=== PATIENT | female | born 1930 | race Caucasian/White ===

== ENCOUNTER → 2019-05-18 | Outpatient (REF) | payer MEDICARE, BC ==
[2019-05-18 11:46] LABS: BASO % 0.4 % (0.0-1.0); EOS # 0.2 10^3/uL (0.0-0.5); EOS % 3.4 % (0.0-3.0); HEMATOCRIT 40.9 % (36.0-47.0); HEMOGLOBIN 13.5 g/dl (12.0-15.5); MEAN CORPUSCULAR HEMOGLOBIN 32.4 pg (27.0-33.0); MEAN CORPUSCULAR VOLUME 98.1 fl (80.0-96.0); MONO # 0.9 10^3/uL (0.0-0.8); MONO % 12.3 % (0.0-5.0); NEUTROPHILS # 4.9 10^3/uL (1.5-8.5); NEUTROPHILS % 69.6 % (36.0-66.0); PLATELET COUNT, AUTOMATED 224 10^3/uL (150-450); RED BLOOD COUNT 4.17 10^6/uL (4.00-5.40); WHITE BLOOD COUNT 7.1 10^3/uL (4.0-10.0)
[2019-05-18 12:18] LABS: ALBUMIN 3.4 GM/DL (3.2-5.2); BILIRUBIN,TOTAL 0.8 MG/DL (0.2-1.0); CALCIUM LEVEL 9.9 MG/DL (8.8-10.2); CHOLESTEROL RISK RATIO 2.151 (<5); CREATININE FOR GFR 0.99 MG/DL (0.55-1.30); GLOMERULAR FILTRATION RATE 56.5 (>32); POTASSIUM SERUM 4.3 MEQ/L (3.5-5.1); TOTAL PROTEIN 6.4 GM/DL (6.4-8.2)
[2019-05-18 12:21] LABS: TOTAL 25(OH) VITAMIN D 31.5 NG/ML (30.0-100.0)
[2019-05-18 12:22] LABS: PTH INTACT 116.5 PG/ML (18.5-88.0)
== END ==
LOC: M SFHCPLAZ 09:06
PROVIDERS: ATTEND Physician Assistant Medical
DX: I10 Essential (primary) hypertension (principal); E78.00 Pure hypercholesterolemia, unspecified; E55.9 Vitamin D deficiency, unspecified

== ENCOUNTER → 2019-06-20 | Outpatient (REF) | payer MEDICARE, BC | LOC: M SFHCPLAZ 17:19 | PROVIDERS: ATTEND Physician Assistant Medical | DX: L82.1 Other seborrheic keratosis (principal) | CPT/HCPCS: 11106; 88305; 90682; G0008; G0463 ==

== ENCOUNTER → 2019-10-24 | Outpatient (REF) | payer MEDICARE, BC ==
[2019-10-24 17:43] LABS: BASO % 0.5 % (0.0-1.0); EOS % 4.2 % (0.0-3.0); HEMATOCRIT 43.8 % (36.0-47.0); HEMOGLOBIN 14.5 g/dl (12.0-15.5); LYMPH # 1.2 10^3/uL (1.5-5.0); LYMPH % 19.7 % (24.0-44.0); MEAN CORPUSCULAR HEMOGLOBIN 31.7 pg (27.0-33.0); MEAN CORPUSCULAR HGB CONC 33.1 g/dl (32.0-36.5); MEAN CORPUSCULAR VOLUME 95.6 fl (80.0-96.0); MONO # 0.9 10^3/uL (0.0-0.8); MONO % 14.7 % (0.0-5.0); NEUTROPHILS # 3.8 10^3/uL (1.5-8.5); NEUTROPHILS % 60.7 % (36.0-66.0); PLATELET COUNT, AUTOMATED 256 10^3/uL (150-450); RED BLOOD COUNT 4.58 10^6/uL (4.00-5.40); WHITE BLOOD COUNT 6.2 10^3/uL (4.0-10.0)
[2019-10-24 17:44] LABS: EOS # 0.3 10^3/uL (0.0-0.5)
[2019-10-24 17:50] LABS: BILIRUBIN,TOTAL 0.7 MG/DL (0.2-1.0); CALCIUM LEVEL 10.1 MG/DL (8.8-10.2); CREATININE FOR GFR 0.95 MG/DL (0.55-1.30); GLOMERULAR FILTRATION RATE 59.2 (>32); POTASSIUM SERUM 4.1 MEQ/L (3.5-5.1); TOTAL PROTEIN 7.5 GM/DL (6.4-8.2)
[2019-10-24 18:01] LABS: PTH INTACT 105.6 PG/ML (18.5-88.0); TOTAL 25(OH) VITAMIN D 35.7 NG/ML (30.0-100.0)
[2019-10-24 18:14] LABS: HEMOGLOBIN A1c 6.1 %
== END ==
LOC: M SFHCPLAZ 13:40
PROVIDERS: ATTEND Physician Assistant Medical
DX: E78.00 Pure hypercholesterolemia, unspecified (principal); I10 Essential (primary) hypertension; E55.9 Vitamin D deficiency, unspecified; R73.01 Impaired fasting glucose
CPT/HCPCS: 36415; 80053; 82306; 82550; 83036; 83970; 85025; G0463

== ENCOUNTER → 2019-11-17 | Outpatient (REF) | payer MEDICARE, BC ==
[2019-11-17 17:29] LABS: ALBUMIN 3.5 GM/DL (3.2-5.2); BILIRUBIN,TOTAL 0.6 MG/DL (0.2-1.0); CALCIUM LEVEL 10.1 MG/DL (8.8-10.2); CREATININE FOR GFR 1.05 MG/DL (0.55-1.30); GLOMERULAR FILTRATION RATE 52.8 (>32); POTASSIUM SERUM 4.5 MEQ/L (3.5-5.1); TOTAL PROTEIN 6.6 GM/DL (6.4-8.2)
== END ==
LOC: M SFHCPLAZ 13:06
PROVIDERS: ATTEND Physician Assistant Medical
DX: E87.1 Hypo-osmolality and hyponatremia (principal)

== ENCOUNTER 2020-01-18 19:17 | Observation (INO) | payer MEDICARE, BC ==
[~2020-01-18] VITALS: Ht 154.9 cm; Wt 55.0 kg
[2020-01-18] MEDS ORDERED: AMLO5TAB6 PO (19:39)
[2020-01-18] MEDS ORDERED: CARV12.5 PO (19:39)
[2020-01-18] MEDS ORDERED: ASPI81TA26 PO (19:39)
[2020-01-18] MEDS ORDERED: SYNT50TA PO (19:39)
[2020-01-18] MEDS ORDERED: CALTCHW4 PO (19:39)
[2020-01-18] MEDS ORDERED: ICAPCAP3 PO (19:39)
[2020-01-18] MEDS ORDERED: ROSU20TA5 PO (19:39)
--- NOTE | 2020-01-18 19:42 | REPVR ---
PROCEDURE INFORMATION: Exam: CT Head Without Contrast Exam date and time: 01/18/2020 7:31 PM Age: 89 years old Clinical indication: Speech disturbance; Patient HX: Trouble forming words and trouble holding and using utensils; Additional info: Neuro deficits TECHNIQUE: Imaging protocol: Computed tomography of the head without contrast. Radiation optimization: All CT scans at this facility use at least one of these dose optimization techniques: automated exposure control; mA and/or kV adjustment per patient size (includes targeted exams where dose is matched to clinical indication); or iterative reconstruction. Other technique: STROKE PROTOCOL was implemented. COMPARISON: No relevant prior studies available. FINDINGS: Brain: There is nzer-sz-[id number] parenchymal volume loss. White matter changes are demonstrated in the subcortical, centrum semiovale and periventricular white matter consistent with age related small vessel white matter angiopathic gliosis. Ventricles: The degree of ventricular dilatation is normal for age and/or degree of atrophy present. Bones/joints: Unremarkable. No acute fracture. Sinuses: Visualized sinuses are unremarkable. No fluid levels. Mastoid air cells: Visualized mastoid air cells are well aerated. Soft tissues: Unremarkable. IMPRESSION: 1. There is mfsp-ks-[id number] parenchymal volume loss. White matter changes are demonstrated in the subcortical, centrum semiovale and periventricular white matter consistent with age related small vessel white matter angiopathic gliosis. 2. The degree of ventricular dilatation is normal for age and/or degree of atrophy present. ASSESSMENT: ASPECTS ([place] Stroke Program Early CT Score) is 10. Electronically signed by: Adam Collins On 01/18/2020 19:41:37 PM
[2020-01-18] MEDS ORDERED: CARVedilol 12.5 MG TAB PO ONE (20:30)
[2020-01-18 20:51] LABS: APPEARANCE, URINE TURBID (CLEAR); BACTERIA, URINE AUTO NEGATIVE (NEGATIVE); BILIRUBIN, URINE AUTO NEGATIVE (NEGATIVE); BLOOD, URINE BLOOD NEGATIVE (NEGATIVE); COLOR, URINE AMBER (YELLOW); GLUCOSE, URINE (UA) AUTO NEGATIVE (NEGATIVE); KETONE, URINE AUTO NEGATIVE (NEGATIVE); LEUKOCYTE ESTERASE, URINE AUTO 3+ (NEGATIVE); NITRITE, URINE AUTO POSITIVE (NEGATIVE); PROTEIN, URINE AUTO 1+ mg/dL (NEGATIVE); RBC, URINE AUTO 108 /HPF (0-3); SQUAMOUS EPITHELIAL CELL UR AU 0 /HPF (0-6); TRANSITIONAL EPITHELIAL AUTO 1 /HPF; UROBILINOGEN, URINE AUTO 0.2 mg/dL (0.0-2.0); WBC, URINE AUTO TNTC /HPF (0-3)
[2020-01-18 20:53] LABS: BASO % 0.3 % (0.0-1.0); EOS # 0.3 10^3/uL (0.0-0.5); EOS % 3.6 % (0.0-3.0); HEMATOCRIT 44.1 % (36.0-47.0); HEMOGLOBIN 14.5 g/dl (12.0-15.5); LYMPH # 1.1 10^3/uL (1.5-5.0); LYMPH % 14.6 % (24.0-44.0); MEAN CORPUSCULAR HEMOGLOBIN 31.8 pg (27.0-33.0); MEAN CORPUSCULAR HGB CONC 32.9 g/dl (32.0-36.5); MEAN CORPUSCULAR VOLUME 96.7 fl (80.0-96.0); MONO # 0.8 10^3/uL (0.0-0.8); NEUTROPHILS # 5.1 10^3/uL (1.5-8.5); NEUTROPHILS % 70.2 % (36.0-66.0); PLATELET COUNT, AUTOMATED 221 10^3/uL (150-450); RED BLOOD COUNT 4.56 10^6/uL (4.00-5.40); WHITE BLOOD COUNT 7.3 10^3/uL (4.0-10.0)
[2020-01-18] MEDS ORDERED: LOSA100T8 PO (21:04)
[2020-01-18 21:07] LABS: PROTHROMBIN TIME 12.9 SECONDS (11.8-14.0)
[2020-01-18 21:08] LABS: PARTIAL THROMBOPLASTIN TIME 36.8 SECONDS (25.0-38.4)
[2020-01-18 21:18] LABS: BLOOD UREA NITROGEN 15 MG/DL (7-18); CARBON DIOXIDE LEVEL 28 MEQ/L (21-32); CHLORIDE LEVEL 103 MEQ/L (98-107); CK-MB VALUE MASS 1.1 NG/ML (<3.6); CPK CREATINE PHOSPHOKINASE 54 U/L (26-192); CREATININE FOR GFR 1.06 MG/DL (0.55-1.30); GLOMERULAR FILTRATION RATE 52.2 (>32); GLUCOSE, FASTING 126 MG/DL (70-100); MB/CK RELATIVE INDEX 2.04 (< OR =4); POTASSIUM SERUM 4.4 MEQ/L (3.5-5.1); SODIUM LEVEL 137 MEQ/L (136-145); TROPONIN I < 0.02 NG/ML (< 0.10)
--- NOTE | 2020-01-18 21:18 | ECGEPIP ---
[facility] - ED Test Date: 2020-01-18 Pat Name: ELISABETH ESTES Department: Room: - Gender: Female Information Management Specialist: RITA : [id number] Requested By: Phu Fortune Order Number: [id number] Reading MD: Phu Enamorado Measurements Intervals [place] Rate: 72 P: 28 WV: 197 QRS: -52 QRSD: 98 T: 25 QT: 364 QTc: 400 Interpretive Statements SINUS RHYTHM PATTERN CONSISTENT WITH PULMONARY DISEASE SEPTAL MYOCARDIAL INFARCTION, OF INDETERMINATE AGE NO PRIORS FOR COMPARISON Electronically Signed on 01-18-2020 21:18:00 EDT by Phu Enamorado
[2020-01-18] MEDS ORDERED: MAALOX 30 ML SUSP *UDC PO PRN (21:45)
[2020-01-18] MEDS ORDERED: ACETAMINOPHEN TAB 650MG DOSE (2X325MG) PO PRN (21:45)
[2020-01-18] MEDS ORDERED: MOM 30ML SUSPENSION UDC PO PRN (21:45)
[2020-01-18] MEDS ORDERED: cefTRIAXone SOD 1 GM in D5W MINI-BAG PLUS 50 ML IV SCH (22:00)
--- NOTE | 2020-01-18 22:13 | HPEPDOC ---
General Date of Admission Date of Service: January 18, 2020 Chief Complaint The patient is a 89-year-old female admitted with a reason for visit of Chan De Los Santos. Source: Patient, RN/MD, Other (family) Exam Limitations: No limitations Timing/Duration: Other (today) Severity: Other (, not applicable) Associated Symptoms: Other (expressive aphasia) History of Present Illness This is a 89 years old white female with past medical history of hypothyroidism, hypertension, macular degeneration is status post PR and cardiac arrest 27 years ago, history of high abnormal M immunoglobulins and hyperlipidemia, had tripped on her robe and fell today, but then at about 5:30, while eating her dinner. Her son noticed that she was having difficulty expressing her words and she was also having trouble with her utensils, hence was brought to the emergency room. Patient is not a good historian. According to patient, she tripped on her robe and she doesn't recall any dysarthria or trouble with her fine motor movements. History was obtained from the M.D. and ED records. Home Medications Scheduled Amlodipine Besylate (Amlodipine Besylate) 5 Mg Tablet, 5 MG PO DAILY, (Reported) TAKES AT 0900 Antiox.mv No.10/Omeg3s/Lut/Rafael (I-Caps with Lutein-[place] 3 Sfg) 1 Each Capsule, 1 CAP PO BID, (Reported) TAKES AT NOON AND AFTER SUPPER Aspirin (Aspirin EC) 81 Mg Tablet.dr, 81 MG PO DAILY, (Reported) TAKES AROUND 1400 Calcium Carbonate/Vitamin D3 (Caltrate 600 + D Soft Chew Tab) 1 Each Tab.chew, 1 CHW PO DAILY, (Reported) TAKES AROUND 1500 Carvedilol (Carvedilol) 12.5 Mg Tablet, 12.5 MG PO BID, (Reported) TAKES 0800 & 2100 Levothyroxine Sodium (Synthroid) 50 Mcg Tablet, 50 MCG PO QAM, (Reported) Losartan/Hydrochlorothiazide (Losartan-Hctz 100-12.5 mg Tab) 1 Each Tablet, 1 TAB PO DAILY, (Reported) TAKES AT 0800 Rosuvastatin Calcium (Rosuvastatin Calcium) 20 Mg Tablet, 20 MG PO QHS, (Reported) Allergies Coded Allergies: No Known Allergies (Unverified , 01/18/20) Past Medical History Medical History Hypothyroidism, hypertension, macular degeneration, status post PR, cardiac arrest, 27 years ago, history of abnormal IgM monoclonal antibiotics, and hyperlipidemia Surgical History Status post bladder removal Family History Family history reviewed. No family history of ordered. Social History * Smoker: Denies Alcohol: Denies Drugs: denies A-FIB/CHADSVASC A-FIB History Current/History of A-Fib/PAF?: No Review of Systems Constitutional: Denies: Chills, Fever, Malaise, Night Sweats, Weakness, Fatigue, Weight Loss, Lethargy, Other Eyes: Denies: Pain, Vision change, Conjunctivae inflammation, Eyelid inflammation, Redness, Other ENT: Denies: Head Aches, Ear Pain, Dysphagia, Sinus Congestion, Post Nasal Drip, Sore Throat, Epistaxis, Other Symptoms Skin: Denies: Rash, Lesions, Jaundice, Bruising, Itching, Dry, Breakdown, Nail Changes, Other Pulmonary: Denies: Dyspnea, Cough, Pleuritic Chest Pain, Other Symptoms Cardiovascular: Denies: Chest Pain, Palpitations, Orthopnea, Paroxysmal Noc. Dyspnea, Edema, Lt Headedness, Other Symptoms Gastrointestinal: Denies: Nausea, Vomiting, Abdominal Pain, Diarrhea, Constipation, Melena, Hematochezia, Other Symptoms Genitourinary: Denies: Dysuria, Frequency, Incontinence, Hematuria, Retention, Other Symptoms Hematologic: Denies: Bruising, Bleeding Excessively, Petecchia, Purpura, Enlarged Lymph Nodes, Other Hematologic Endocrine: Denies: Polydipsia, Polyphagia, Polyuria, Heat Intolerance, Cold Intolerance, Other Endocrine Sx Musculoskeletal: Denies: Neck Pain, Back Pain, Shoulder Pain, Arm Pain, Hand Pain, Leg Pain, Foot Pain, Joint Pain, Muscle Pain, Spasms, Other Symptoms Neurological: Reports: Other Symptoms (, difficulty with fine motor movements and dysarthria. As per family) Psych: Denies: Mood Normal, Anxiety, Depression, Memory Issues, Thoughts of Self Harm, Anger, Thoughts of Harming Other, Other Psych Physical Examination General Exam: Positive: Alert, Cooperative, Other (, oriented 2) Eye Exam: Positive: PERRLA, Conjunctiva & lids normal ENT Exam: Positive: Atraumatic, Mucous membr. moist/pink Neck Exam: Positive: Supple Chest Exam: Positive: Clear to auscultation, Normal air movement Heart Exam: Positive: Rate Normal, Normal S1, Normal S2 Abdomen Exam: Positive: Normal bowel sounds, Soft Extremity Exam: Positive: Normal pulses Skin Exam: Positive: Nl turgor and temperature Neuro Exam: Positive: Strength at 5/5 X4 ext, Sensation Intact, Cranial Nerves 3-12 NL Psych Exam: Positive: Mood NL Vital Signs Vital Signs Date Time Temp Pulse Resp B/P (MAP) Pulse Ox O2 Delivery O2 Flow Rate FiO2 01/18/20 21:15 98.2 68 18 174/84 (114) 100 01/18/20 19:17 Room Air Laboratory Data Labs 24H Laboratory Tests 2 01/18/20 20:09: Urine Color CHRISTINE, Urine Appearance TURBIDH, Urine pH 7.0, Urine Specific Gravit y 1.010, Urine Protein 1+H, Urine Glucose (Auto)(UA) NEGATIVE, Urine Ketones (Auto) NEGATIVE, Urine Blood NEGATIVE, Urine Nitrite POSITIVE, Urine Bilirubin NEGATIVE, Urine Urobilinogen 0.2, Urine Leukocyte Esterase (Auto) 3+H, Urine WBC (Auto) TNTCH, Urine RBC (Auto) 108H, Urine Hyaline Casts (Auto) 0, Urine Bacteria (Auto) NEGATIVE, Urine Squamous Epithelial Cells 0, Urine Transitional Epithelial Cells 1, Urine Sperm (Auto) 01/18/20 20:36: Immature Granulocyte % (Auto) 0.3, Neutrophils (%) (Auto) 70.2H, Lymphocytes (%) (Auto) 14.6L, Monocytes (%) (Auto) 11.0H, Eosinophils (%) (Auto) 3.6H, Basophils (%) (Auto) 0.3, Neutrophils # (Auto) 5.1, Lymphocytes # (Auto) 1.1L, Monocytes # (Auto) 0.8, Eosinophils # (Auto) 0.3, Basophils # (Auto) 0.0, Nucleated Red Blood Cells % (auto) 0.0, Prothrombin Time 12.9, Prothromb Time International Ratio 1.00, Activated Partial Thromboplast Time 36.8, Anion Gap 6L, Glomerular Filtration Rate 52.2, Calcium Level 10.0, Total Creatine Kinase 54, Creatine Kinase MB 1.1, Creatine Kinase MB Relative Index 2.04, Troponin I < 0.02 CBC/BMP Laboratory Tests 01/18/20 20:36 Problems (1) TIA (transient ischemic attack) Status: Acute Problem Text: Admit patient to PCU under observation Patient is a CT of the head essentially showed mild to moderate parenchymal volume loss and age-related changes but no hemorrhage or stroke CBC, CMP and troponins are essentially within normal range Patient is ready on baby aspirin and Crestor and will continue the same Neuro check every 4 hours for 24 hours Telemetry monitoring MRI of the brain without contrast Carotid Dopplers bilaterally Echocardiogram PT/OT/ST evaluation Diet 2 g sodium Activity ambulate with assist and till seen by physical therapy DVT prophylaxis with heparin (2) UTI (urinary tract infection) Status: Acute Problem Text: Patient urine shows 3+ leukocyte the stress with bacteria too numerous to count Rocephin 1 g IV every 24 hours has been ordered , Urine cultures Encourage by mouth increase intake of liquids (3) Essential hypertension Status: Chronic Problem Text: History of hypertension, on Coreg, amlodipine, lovastatin and hydrochlorothiazide Blood pressure at the present time is slightly elevated, but considering the new diagnosis of TIA, will not aggressively treat . I will continue all her home antihypertensive meds and monitor blood pressure closely and slowly increase the dosage of her meds if necessary to normalize her blood pressure (4) Hypothyroidism Status: Chronic Problem Text: Continue home meds Plan / VTE VTE Prophylaxis Ordered?: Yes WILLIAN PITTMAN MD January 18, 2020 22:12
[2020-01-18 23:00] VITALS: BP 220/110
--- NOTE | 2020-01-18 23:10 | REPVR ---
PROCEDURE INFORMATION: Exam: US Duplex Bilateral Extracranial Arteries Exam date and time: 01/18/2020 10:51 PM Age: 89 years old Clinical indication: Other: TIA TECHNIQUE: Imaging protocol: Real-time Duplex ultrasound scan of the bilateral carotid and vertebral arteries combining hauser scale, color Doppler and spectral waveform analysis. Bilateral exam. COMPARISON: CT Head without contrast 01/18/2020 7:22 PM FINDINGS: Right common carotid artery: Unremarkable. No occlusion or stenosis. Waveforms are normal. Right internal carotid artery: Moderate calcific and noncalcific atherosclerotic narrowing in the right bulb. No significant elevation in peak systolic velocity. Spectral broadening demonstrated in the waveform. Right ICA/CCA ratio: Within normal limits. Right external carotid artery: Atherosclerotic narrowing at the origin. Right vertebral artery: Unremarkable. Antegrade flow. Left common carotid artery: Intimal thickening. Otherwise unremarkable. No occlusion or stenosis. Waveforms are normal. Left internal carotid artery: Mild atherosclerotic narrowing. No occlusion or high-grade stenosis. Waveforms are normal. Left ICA/CCA ratio: Within normal limits. Left external carotid artery: No stenosis in the origin. Left vertebral artery: Unremarkable. Antegrade flow. IMPRESSION: 1. Moderate atherosclerotic narrowing using anatomic criteria in the proximal right internal carotid artery without significant elevation in velocities. 2. Mild atherosclerotic narrowing in the proximal left internal carotid artery without significant stenosis. 3. Atherosclerotic narrowing at the origin of the right external carotid artery. 4. Normal flow in both vertebral arteries. REFERENCES: SRU CRITERIA. The degree of internal carotid artery stenosis is based on criteria defined by the Society of Radiologists in Ultrasound (SRU). Normal is no stenosis. Mild is less than 50% stenosis. Moderate is 50-69% stenosis. Severe is greater than 69% stenosis to near occlusion. Near occlusion is a markedly narrowed lumen. Total occlusion is no detectable patent lumen. Electronically signed by: Adam Collins On 01/18/2020 23:09:58 PM
[2020-01-18] MEDS ORDERED: hydrALAZINE 20MG/ML 1ML VIAL (J0360 PER 20MG) IV ONE (23:15)
[2020-01-18] MEDS: ROSUVASTATIN 10 MG TAB (CRESTOR) PO SCH (23:23)
[2020-01-19] VITALS (8 sets, daily range): BP systolic 129–190; BP diastolic 70–96
[2020-01-19 04:09] LABS: HEMATOCRIT 42.4 % (36.0-47.0); HEMOGLOBIN 14.3 g/dl (12.0-15.5); MEAN CORPUSCULAR HEMOGLOBIN 32.2 pg (27.0-33.0); MEAN CORPUSCULAR HGB CONC 33.7 g/dl (32.0-36.5); MEAN CORPUSCULAR VOLUME 95.5 fl (80.0-96.0); PLATELET COUNT, AUTOMATED 213 10^3/uL (150-450); RED BLOOD COUNT 4.44 10^6/uL (4.00-5.40); WHITE BLOOD COUNT 9.7 10^3/uL (4.0-10.0)
[2020-01-19 04:43] LABS: ALBUMIN 3.4 GM/DL (3.2-5.2); ALT/SGPT 24 U/L (12-78); BILIRUBIN,TOTAL 0.6 MG/DL (0.2-1.0); BLOOD UREA NITROGEN 15 MG/DL (7-18); CARBON DIOXIDE LEVEL 26 MEQ/L (21-32); CHLORIDE LEVEL 104 MEQ/L (98-107); CREATININE FOR GFR 0.92 MG/DL (0.55-1.30); GLOMERULAR FILTRATION RATE > 60.0 (>32); GLUCOSE, FASTING 124 MG/DL (70-100); MAGNESIUM LEVEL 2.3 MG/DL (1.8-2.4); POTASSIUM SERUM 3.9 MEQ/L (3.5-5.1); SODIUM LEVEL 135 MEQ/L (136-145); TOTAL PROTEIN 6.6 GM/DL (6.4-8.2)
[2020-01-19] MEDS: LEVOTHYROXINE 50MCG TABLET (0.05MG) PO SCH (05:07)
[2020-01-19] MEDS: HEPARIN SOD (PORCINE) 5000UNITS/ML VIAL (J1644 PER 1000UNITS) SC SCH ×2 (08:51→20:50)
[2020-01-19] MEDS: LOSARTAN 50MG TABLET PO SCH (08:51)
[2020-01-19] MEDS: amLODIPine 5 MG TAB PO SCH (08:52)
[2020-01-19] MEDS: CARVedilol 12.5 MG TAB PO SCH ×2 (08:52→20:49)
[2020-01-19] MEDS: DOCUSATE SODIUM 100 MG CAP PO SCH ×2 (08:52→20:48)
--- NOTE | 2020-01-19 08:53 | REP ---
PORTABLE CHEST X-RAY: Single view. HISTORY: TIA. No comparison study. FINDINGS: The lungs are symmetrically aerated and clear. Heart is enlarged. The aorta is tortuous and calcific. Pulmonary vasculature is not increased. No focal infiltrate is appreciated. IMPRESSION: Cardiomegaly. Otherwise no acute disease. Electronically Signed by Matteo Conn MD 01/19/2020 09:13 A
[2020-01-19] MEDS ORDERED: hydroCHLOROthiazide 12.5 MG CAPSULE PO SCH (09:00)
--- NOTE | 2020-01-19 12:18 | IPNPDOC ---
Text Note Date of Service The patient was seen on 01/19/20. NOTE Subjective: -Doing much better this morning -Was walking in the hallway with PT with a walker -No complaints, told me that she misses her who in 09/2018 Objective: General: NAD Eye: PERRLA, Conjunctiva & lids normal, EOMI ENT: Atraumatic, Mucous membr. moist/pink Neck Exam: Supple Chest: Clear to auscultation, Normal air movement Heart: Rate Normal, Normal S1, Normal S2 Abdomen: Normal bowel sounds, Soft, NTND Extremity: WWP, no edema Skin: Nl turgor and temperature Neuro: Strength at 5/5 X4 ext, Sensation Intact, Cranial Nerves 3-12 NL Psych: AOx2 to self and hospital Labs: Reviewed Plan (1) TIA (transient ischemic attack): may have also been metabolic encephalopathy 2/2 acute infection with ongoing UTI Status: Acute - CT of the head essentially showed mild to moderate parenchymal volume loss and age-related changes but no hemorrhage or stroke -CBC, CMP and troponins wnl -continue home ASA/statin -continue Q4H neurocheck for 24h, thus far stable -Telemetry -f/u MRI of the brain without contrast -Carotid Dopplers with moderate disease without significant stenoses -Echocardiogram pending -PT/OT/ST evaluation ongoing -DVT prophylaxis with heparin (2) UTI Status: Acute Problem Text: 3+ leukocyte the stress with bacteria too numerous to count, having presented with AMS/neuro changes -continue 1 g IV every 24 hours -f/u UCx -continue to encourage PO (3) Essential hypertension Status: Chronic Problem Text: History of hypertension -continue home Coreg, amlodipine, lovastatin and hydrochlorothiazide (4) Hypothyroidism Status: Chronic -Continue home meds VS,Fishbone, I+O VS, Fishbone, I+O Laboratory Tests 01/18/20 20:36 01/19/20 03:49 Vital Signs Date Time Temp Pulse Resp B/P (MAP) Pulse Ox O2 Delivery O2 Flow Rate FiO2 01/19/20 08:52 76 181/78 01/19/20 08:00 98.1 16 96 Room Air I&O- Last 24 Hours up to 6 AM 01/19/20 05:59 Intake Total 50 ml Output Total 0 ml Balance 50 ml UMM BURT MD January 19, 2020 12:18
[2020-01-19] MEDS ORDERED: SLF 3 ML SYR IV PRN (13:15)
[2020-01-19] MEDS ORDERED: ASPIRIN 81 MG ENTERIC TAB PO SCH (14:00)
[2020-01-19] MEDS: SLF 3 ML SYR IV SCH ×2 (14:00→20:50)
--- NOTE | 2020-01-19 15:17 | ECHO ---
DATE OF STUDY: 01/19/2020 REFERRING PHYSICIAN: Dr. Malcolm Stephenson INDICATION: Transient cerebral ischemia, unspecified. HEIGHT: 155 cm WEIGHT: 82 kg 2-D MEASUREMENTS: Aortic annulus: 1.8 cm Aortic root: 3.1 cm Left atrium: 2.4 cm Left ventricular diastole: 4.1 cm Ventricular septum: 1.10 cm Posterior wall: 1.11 cm Inferior vena cava: 1.1 cm (more than 50% respiratory variation) DOPPLER MEASUREMENTS: No aortic regurgitation. No aortic stenosis. Aortic valve velocity: 154 cm/sec LVOT velocity: 93.2 cm/sec LVOT VTI: 21.8 cm Trace mitral regurgitation. No mitral stenosis. Mitral E velocity: 73.1 cm/sec Mitral A velocity: 113 cm/sec Mitral deceleration time: 299 ms Trace tricuspid regurgitation. Estimated right ventricular systolic pressure 25-30 mmHg assuming a right atrial pressure of 5-10 mmHg. Very mild pulmonic regurgitation. Pulmonary artery systolic pressure: 24 mmHg MITRAL ANNULAR TISSUE DOPPLER E prime septal: 3.7 cm/sec E prime lateral: 3.9 cm/sec DESCRIPTION: The rhythm was sinus. Image quality was fair. No pericardial effusion. This was a 2-D, M-mode, color flow Doppler and pulsed wave Doppler examination and included mitral annular tissue Doppler. It also included a saline bubble study. CONCLUSIONS: 1. Bubble study negative for detection of atrial septal defect (ASD) or patent foramen ovale with right to left shunting; however, visualization of the left atrium was suboptimal due to overgaining effects. 2. Presence of atherosclerosis in the aortic root in the vicinity of the sinotubular junction and beginning portion of the proximal ascending aorta. 3. Moderate aortic valve sclerosis of a 3-cusp aortic valve. No aortic stenosis or regurgitation. 4. Hyperdynamic LV systolic function. Left ventricular ejection fraction (LVEF) 75% by visual estimate. Grade I LV diastolic dysfunction (impaired relaxation of filling pattern). 5. Otherwise, normal appearing echocardiogram-Doppler findings.
[2020-01-19] MEDS: CEPHALEXIN 500 MG CAP PO SCH ×2 (17:24→20:49)
[2020-01-19] MEDS: ROSUVASTATIN 10 MG TAB (CRESTOR) PO SCH (20:49)
[2020-01-19] MEDS ORDERED: NITROFURANTOIN (MACROBID) 100 MG CAP PO SCH (21:00)
[2020-01-20] MEDS: LEVOTHYROXINE 50MCG TABLET (0.05MG) PO SCH (05:29)
[2020-01-20] MEDS: SLF 3 ML SYR IV SCH (05:30)
[2020-01-20 06:00] VITALS: BP 109/77
[2020-01-20] MEDS ORDERED: LOSA100T5 PO (08:09)
[2020-01-20] MEDS ORDERED: CEPH500C PO (08:09)
[2020-01-20] MEDS ORDERED: DOCU100C16 PO (08:09)
--- NOTE | 2020-01-20 08:25 | REP ---
MRI BRAIN WITHOUT CONTRAST: HISTORY: Transient ischemic attack. Comparison is made with the previous day's noncontrast CT study. TECHNIQUE: Axial and sagittal imaging planes are utilized for T1- and T2-weighted scans. Sequences include spin-echo, fast spin echo, FLAIR, and diffusion weighted sequences. MRI FINDINGS: No bony calvarial lesion is seen. Craniocervical junction and upper cervical cord are unremarkable. There is no MR evidence of significant paranasal sinus disease. No intraorbital abnormality. There is generalized volume loss. Mild small vessel changes are seen in the periventricular and subcortical white matter bilaterally. There is no evidence of intracranial hemorrhage. No extra-axial fluid collection is seen. Diffusion-weighted scans show no evidence of restricted diffusion to suggest acute ischemia. IMPRESSION: Volume loss and small vessel changes. No acute ischemia is seen. Otherwise negative. Electronically Signed by Matteo Conn MD 01/21/2020 07:39 P
[2020-01-20] MEDS: HEPARIN SOD (PORCINE) 5000UNITS/ML VIAL (J1644 PER 1000UNITS) SC SCH (09:00)
[2020-01-20] MEDS ORDERED: hydroCHLOROthiazide 25 MG TAB PO SCH (09:00)
[2020-01-20] MEDS: DOCUSATE SODIUM 100 MG CAP PO SCH (10:02)
[2020-01-20] MEDS: CEPHALEXIN 500 MG CAP PO SCH ×2 (10:03→12:51)
[2020-01-20] MEDS: amLODIPine 5 MG TAB PO SCH (10:03)
[2020-01-20] MEDS: LOSARTAN 50MG TABLET PO SCH (10:03)
[2020-01-20 10:04] VITALS: BP 120/76
[2020-01-20] MEDS: CARVedilol 12.5 MG TAB PO SCH (10:04)
--- NOTE | 2020-01-20 10:42 | DS.PDOC ---
Discharge Summary General Date of Admission January 18, 2020 at 19:18 Date of Discharge 01/20/2020 Attending Physician: UMM BURT MD Discharge Summary PROCEDURES PERFORMED DURING STAY: None ADMITTING DIAGNOSES: 1. TIA DISCHARGE DIAGNOSES: 1. UTI 2. Metabolic encephalopathy 2/2 infection 3. Hypothyroidism 4. Hypertension 5.Macular degeneration 6. CAD 7. Hyperlipidemia 8. Mechanical fall COMPLICATIONS/CHIEF COMPLAINT: Transient Ischemic Attack, Uti. HISTORY OF PRESENT ILLNESS: 89 year old W with a history of hypothyroidism, hypertension, macular degeneration, CAD, history of high abnormal M immunoglobulins and hyperlipidemia tripped on her robe and fell and a few hours later was noted to have difficulty expressing words and she was also having trouble with her utensils and was brought to the emergency room. HOSPITAL COURSE: On arrival she had severe hypertension and found to have a mariam UTI, was CT head not reveal any bleeding, masses or acute intracranial abnormalities and she was admitted for hypertensive urgency, UTI and stroke rule out. She had q4 neurochecks that showed a stable normal neurological examination over 24hours, ambulated with physical therapy with a walker, had a follow up MRI brain that revealed no acute infarct, bleeding or mass, while she was empirically started on ceftriaxone and later transitioned to keflex with a plan for a 7 day course. With regard to her hypertension, she required some IV antihypertensives and was resumed on her home regimen with uptitration of her HCTZ from 12.5 to 25 daily. She has now been cleared by PT and will be discharged home where she will complete the remaining 5d of her keflex. DISCHARGE MEDICATIONS: Please see below. ALLERGIES: Please see below. PHYSICAL EXAMINATION ON DISCHARGE: VITAL SIGNS: Please see below. General: NAD, pleasant, conversational, cooperative Eye: PERRLA, Conjunctiva & lids normal, EOMI ENT: Atraumatic, Mucous membr. moist/pink Neck Exam: Supple Chest: Clear to auscultation, Normal air movement Heart: Rate Normal, Normal S1, Normal S2 Abdomen: Normal bowel sounds, Soft, NTND Extremity: WWP, no edema Skin: Nl turgor and temperature Neuro: Strength at 5/5 X4 ext, normal tone, Cranial Nerves 2-12 WNL, no dysarthria, droops, or asymmetrical weakness Psych: AOx3 LABORATORY DATA: Please see below. IMAGING: noncontrast head CT: 1. There is twbs-[id number] parenchymal volume loss. White matter changes are demonstrated in the subcortical, centrum semiovale and periventricular white matter consistent with age related small vessel white matter angiopathic gliosis. 2. The degree of ventricular dilatation is normal for age and/or degree of atrophy present. CXR: Cardiomegaly. Otherwise no acute disease. Duplex carotid US: Right common carotid artery: Unremarkable. No occlusion or stenosis. Waveforms are normal. Right internal carotid artery: Moderate calcific and noncalcific atherosclerotic narrowing in the right bulb. No significant elevation in peak systolic velocity. Spectral broadening demonstrated in the waveform. Right ICA/CCA ratio: Within normal limits. Right external carotid artery: Atherosclerotic narrowing at the origin. Right vertebral artery: Unremarkable. Antegrade flow. Left common carotid artery: Intimal thickening. Otherwise unremarkable. No occlusion or stenosis. Waveforms are normal. Left internal carotid artery: Mild atherosclerotic narrowing. No occlusion or high-grade stenosis. Waveforms are normal. Left ICA/CCA ratio: Within normal limits. Left external carotid artery: No stenosis in the origin. Left vertebral artery: Unremarkable. Antegrade flow. IMPRESSION: 1. Moderate atherosclerotic narrowing using anatomic criteria in the proximal right internal carotid artery without significant elevation in velocities. 2. Mild atherosclerotic narrowing in the proximal left internal carotid artery without significant stenosis. 3. Atherosclerotic narrowing at the origin of the right external carotid artery. 4. Normal flow in both vertebral arteries. MRI brain without contrast: Volume loss and small vessel changes. No acute ischemia is seen. Otherwise negative. PROGNOSIS: Good ACTIVITY: As tolerated DIET: regular DISCHARGE PLAN: Home to complete 5 more days of keflex for UTI. PCP f/u within 1 week DISPOSITION: Home DISCHARGE INSTRUCTIONS: 1. Home to complete 5 more days of keflex for UTI. PCP f/u within 1 week ITEMS TO FOLLOWUP ON ON OUTPATIENT: 1. UTI 2. Metabolic encephalopathy 3. Hypertension DISCHARGE CONDITION: Stable TIME SPENT ON DISCHARGE: 44 minutes. Vital Signs/I&Os Vital Signs Date Time Temp Pulse Resp B/P (MAP) Pulse Ox O2 Delivery O2 Flow Rate FiO2 01/20/20 06:00 97.7 64 17 109/77 (88) 98 Room Air I&O- Last 24 Hours up to 6 AM 01/20/20 05:59 Intake Total 360 ml Output Total 400 ml Balance -40 ml Microbiology Microbiology 01/19/20 Urine Culture, Received Pending Discharge Medications Scheduled Amlodipine Besylate (Amlodipine Besylate) 5 Mg Tablet, 5 MG PO DAILY, (Reported) TAKES AT 0900 Antiox.mv No.10/Omeg3s/Lut/Rafael (I-Caps with Lutein-[place] 3 Sfg) 1 Each Capsule, 1 CAP PO BID, (Reported) TAKES AT NOON AND AFTER SUPPER Aspirin (Aspirin EC) 81 Mg Tablet.dr, 81 MG PO DAILY, (Reported) TAKES AROUND 1400 Calcium Carbonate/Vitamin D3 (Caltrate 600 + D Soft Chew Tab) 1 Each Tab.chew, 1 CHW PO DAILY, (Reported) TAKES AROUND 1500 Carvedilol (Carvedilol) 12.5 Mg Tablet, 12.5 MG PO BID, (Reported) TAKES 0800 & 2100 Cephalexin (Cephalexin) 500 Mg Capsule, 500 MG PO QID Docusate Sodium (Docusate Sodium) 100 Mg Capsule, 100 MG PO BID Levothyroxine Sodium (Synthroid) 50 Mcg Tablet, 50 MCG PO QAM, (Reported) Losartan/Hydrochlorothiazide (Losartan-Hctz 100-25 mg Tab) 1 Each Tablet, 1 TAB PO DAILY Rosuvastatin Calcium (Rosuvastatin Calcium) 20 Mg Tablet, 20 MG PO QHS, (Reported) Allergies Coded Allergies: No Known Allergies (Unverified , 01/18/20) UMM BURT MD January 20, 2020 08:06
== END 2020-01-20 13:05 | disposition home or self-care (01) ==
LOC: M ED 19:17 → M ED INP 19:18 → ENRESERV 22:23 → M PCU 22:52 → M MS5PR 01-19 21:29
PROVIDERS: ADMIT Internal Medicine; ATTEND Internal Medicine
DX: N39.0 Urinary tract infection, site not specified (principal); G93.41 Metabolic encephalopathy; E03.9 Hypothyroidism, unspecified; I16.0 Hypertensive urgency; I10 Essential (primary) hypertension; H35.30 Unspecified macular degeneration; E78.49 Other hyperlipidemia; Z79.899 Other long term (current) drug therapy; I25.2 Old myocardial infarction; Z91.81 History of falling; Z87.891 Personal history of nicotine dependence
CPT/HCPCS: 36415; 70450; 70551; 71045; 80048; 80053; 81001; 82550; 82553; 83735; 84484; 85025; 85027; 85610; 85730; 86850; 86900; 86901; 87086; 92523; 92610; 93005; 93041; 93306; 93880; 94760; 96365; 96375; 97161; 97165; 97530; 99285; G0378; J0360; J0696; J1644

== ENCOUNTER → 2020-05-14 | Outpatient (CLI) | payer MEDICARE, BC ==
[~2020-05-14] MED LIST: AMLO1TAB24 PO; ASPI81TA26 PO; CALTCHW4 PO; CARV12.5 PO; CEPH500C PO; DOCU100C16 PO; ICAPCAP3 PO; LOSA100T5 PO; LOSA100T8 PO; ROSU20TA5 PO; SYNT50TA PO
[2020-05-14 15:34] LABS: BASO # 0.1 10^3/uL (0.0-0.2); BASO % 0.8 % (0.0-1.0); EOS # 0.3 10^3/uL (0.0-0.5); EOS % 4.8 % (0.0-3.0); HEMATOCRIT 40.7 % (36.0-47.0); LYMPH # 1.5 10^3/uL (1.5-5.0); LYMPH % 24.2 % (24.0-44.0); MEAN CORPUSCULAR HEMOGLOBIN 32.7 pg (27.0-33.0); MEAN CORPUSCULAR HGB CONC 34.4 g/dl (32.0-36.5); MEAN CORPUSCULAR VOLUME 95.1 fl (80.0-96.0); MONO # 0.8 10^3/uL (0.0-0.8); MONO % 13.7 % (0.0-5.0); NEUTROPHILS # 3.4 10^3/uL (1.5-8.5); NEUTROPHILS % 56.2 % (36.0-66.0); PLATELET COUNT, AUTOMATED 250 10^3/uL (150-450); RED BLOOD COUNT 4.28 10^6/uL (4.00-5.40)
[2020-05-14 16:02] LABS: ALBUMIN 3.6 GM/DL (3.2-5.2); ALT/SGPT 30 U/L (12-78); BILIRUBIN,TOTAL 0.7 MG/DL (0.2-1.0); BLOOD UREA NITROGEN 21 MG/DL (7-18); CALCIUM LEVEL 10.3 MG/DL (8.8-10.2); CARBON DIOXIDE LEVEL 30 MEQ/L (21-32); CHLORIDE LEVEL 97 MEQ/L (98-107); CREATININE FOR GFR 0.89 MG/DL (0.55-1.30); FREE T4 1.56 NG/DL (0.76-1.46); GLOMERULAR FILTRATION RATE > 60.0 (>32); GLUCOSE, FASTING 98 MG/DL (70-100); SODIUM LEVEL 133 MEQ/L (136-145); TOTAL PROTEIN 7.1 GM/DL (6.4-8.2)
[2020-05-14 17:54] LABS: HEMOGLOBIN A1c 5.8 %
== END ==
LOC: M PLALAB 14:07
PROVIDERS: ATTEND Physician Assistant Medical
DX: I10 Essential (primary) hypertension (principal); E03.9 Hypothyroidism, unspecified; R73.01 Impaired fasting glucose; E78.5 Hyperlipidemia, unspecified

== ENCOUNTER → 2020-08-26 | Outpatient (REF) | payer MEDICARE, BC ==
[2020-08-26 10:56] LABS: ALBUMIN 3.5 GM/DL (3.2-5.2); BILIRUBIN,TOTAL 0.6 MG/DL (0.2-1.0); CALCIUM LEVEL 9.7 MG/DL (8.8-10.2); CHOLESTEROL RISK RATIO 2.285 (<5); CREATININE FOR GFR 0.96 MG/DL (0.55-1.30); GLOMERULAR FILTRATION RATE 58.4 (>32); POTASSIUM SERUM 3.8 MEQ/L (3.5-5.1); TOTAL PROTEIN 6.1 GM/DL (6.4-8.2)
== END ==
LOC: M SFHCPLAZ 08:05
PROVIDERS: ATTEND Physician Assistant Medical
DX: I10 Essential (primary) hypertension (principal); E78.00 Pure hypercholesterolemia, unspecified

== ENCOUNTER → 2020-12-03 | Outpatient (REF) | payer MEDICARE, BC ==
[2020-12-03 15:33] LABS: BASO % 0.5 % (0.0-1.0); EOS # 0.3 10^3/uL (0.0-0.5); HEMATOCRIT 41.8 % (36.0-47.0); HEMOGLOBIN 13.5 g/dl (12.0-15.5); LYMPH # 1.2 10^3/uL (1.5-5.0); LYMPH % 20.7 % (24.0-44.0); MEAN CORPUSCULAR HEMOGLOBIN 32.5 pg (27.0-33.0); MEAN CORPUSCULAR HGB CONC 32.3 g/dl (32.0-36.5); MEAN CORPUSCULAR VOLUME 100.7 fl (80.0-96.0); MONO # 0.8 10^3/uL (0.0-0.8); MONO % 14.3 % (2.0-8.0); NEUTROPHILS # 3.4 10^3/uL (1.5-8.5); NEUTROPHILS % 59.3 % (36.0-66.0); PLATELET COUNT, AUTOMATED 217 10^3/uL (150-450); RED BLOOD COUNT 4.15 10^6/uL (4.00-5.40); WHITE BLOOD COUNT 5.7 10^3/uL (4.0-10.0)
[2020-12-03 15:43] LABS: ALBUMIN 3.4 GM/DL (3.2-5.2); BILIRUBIN,TOTAL 0.5 MG/DL (0.2-1.0); CALCIUM LEVEL 9.7 MG/DL (8.8-10.2); CREATININE FOR GFR 0.96 MG/DL (0.55-1.30); FREE T4 1.24 NG/DL (0.76-1.46); GLOMERULAR FILTRATION RATE 58.4 (>32); POTASSIUM SERUM 4.5 MEQ/L (3.5-5.1); PTH INTACT 141.8 PG/ML (18.5-88.0); THYROID STIMULATING HORMONE 2.17 uIU/ML (0.358-3.740); TOTAL 25(OH) VITAMIN D 28.7 NG/ML (30.0-100.0); TOTAL PROTEIN 6.5 GM/DL (6.4-8.2)
[2020-12-03 15:50] LABS: HEMOGLOBIN A1c 5.6 %
== END ==
LOC: M SFHCPLAZ 13:11
PROVIDERS: ATTEND Physician Assistant Medical
DX: E87.1 Hypo-osmolality and hyponatremia (principal); I10 Essential (primary) hypertension; E03.9 Hypothyroidism, unspecified; R73.01 Impaired fasting glucose; E55.9 Vitamin D deficiency, unspecified
CPT/HCPCS: 36415; 80053; 82306; 83036; 83970; 84439; 84443; 85025; G0463

== ENCOUNTER → 2021-10-27 | Outpatient (CLI) | payer MEDICARE, BC ==
[2021-10-27 17:32] LABS: BASO % 0.5 % (0.0-1.0); EOS # 0.4 10^3/uL (0.0-0.5); EOS % 6.8 % (0.0-3.0); HEMOGLOBIN 13.6 g/dl (12.0-15.5); LYMPH # 1.3 10^3/uL (1.5-5.0); LYMPH % 22.7 % (24.0-44.0); MEAN CORPUSCULAR HEMOGLOBIN 31.6 pg (27.0-33.0); MEAN CORPUSCULAR HGB CONC 32.4 g/dl (32.0-36.5); MEAN CORPUSCULAR VOLUME 97.7 fl (80.0-96.0); MONO # 0.9 10^3/uL (0.0-0.8); MONO % 15.4 % (2.0-8.0); NEUTROPHILS % 54.2 % (36.0-66.0); PLATELET COUNT, AUTOMATED 231 10^3/uL (150-450); WHITE BLOOD COUNT 5.6 10^3/uL (4.0-10.0)
[2021-10-27 17:54] LABS: ALBUMIN 3.6 GM/DL (3.2-5.2); BILIRUBIN,TOTAL 0.6 MG/DL (0.2-1.0); CALCIUM LEVEL 10.5 MG/DL (8.8-10.2); CHOLESTEROL RISK RATIO 2.304 (<5); CREATININE FOR GFR 1.01 MG/DL (0.55-1.30); FREE T4 1.29 NG/DL (0.76-1.46); GLOMERULAR FILTRATION RATE 54.9 (>32); POTASSIUM SERUM 4.4 MEQ/L (3.5-5.1); THYROID STIMULATING HORMONE 3.21 uIU/ML (0.358-3.740); TOTAL PROTEIN 6.7 GM/DL (6.4-8.2)
[2021-10-27 17:59] LABS: PTH INTACT 146.7 PG/ML (18.5-88.0)
[2021-10-28 12:42] LABS: TOTAL 25(OH) VITAMIN D 51.8 NG/ML (30.0-100.0)
== END ==
LOC: M PLALAB 15:41
PROVIDERS: ATTEND Physician Assistant Medical
DX: R30.0 Dysuria (principal); E78.00 Pure hypercholesterolemia, unspecified; R73.01 Impaired fasting glucose; E03.9 Hypothyroidism, unspecified; I10 Essential (primary) hypertension; E55.9 Vitamin D deficiency, unspecified

== ENCOUNTER → 2021-10-27 | Outpatient (REF) | payer MEDICARE, BC ==
[2021-10-27 20:37] LABS: APPEARANCE, URINE MANUAL TURBID (CLEAR)
[2021-10-27 20:38] LABS: BILIRUBIN, URINE MANUAL NEGATIVE (NEGATIVE); BLOOD URINE MANUAL POSITIVE (NEGATIVE); COLOR, URINE MANUAL YELLOW (YELLOW); GLUCOSE, URINE (UA) MANUAL NEGATIVE (NEGATIVE); KETONE, URINE MANUAL NEGATIVE (NEGATIVE); LEUKOCYTE ESTERASE, URINE MAN POSITIVE (NEGATIVE); NITRITE, URINE MANUAL POSITIVE (NEGATIVE); PH,URINE MAN 5.5 UNITS (5.0 - 7.0); PROTEIN, URINE MANUAL 2+ mg/dL (NEGATIVE); UROBILINOGEN, URINE MANUAL NORMAL (NORMAL)
[2021-10-27 21:18] LABS: WBC, URINE TNTC /hpf (0-3)
[2021-10-27 21:19] LABS: BACTERIA, URINE LARGE AMOUNT; SQUAMOUS EPITHELIAL CELL URINE SMALL AMOUNT /hpf (SMALL AMT)
[2021-10-27 21:20] LABS: HYALINE CAST, URINE NONE SEEN /lpf (0-1)
== END ==
LOC: M SFHCPLAZ 18:02
PROVIDERS: ATTEND Physician Assistant Medical
DX: R30.0 Dysuria (principal)

== ENCOUNTER → 2021-11-27 | Outpatient (REF) | payer MEDICARE, BC ==
[2021-11-27 13:57] LABS: APPEARANCE, URINE CLOUDY (CLEAR); BACTERIA, URINE AUTO NEGATIVE (NEGATIVE); BILIRUBIN, URINE AUTO NEGATIVE (NEGATIVE); BLOOD, URINE BLOOD NEGATIVE (NEGATIVE); CALCIUM OXALATE CRYSTALS SMALL; COLOR, URINE YELLOW (YELLOW); GLUCOSE, URINE (UA) AUTO NEGATIVE (NEGATIVE); KETONE, URINE AUTO NEGATIVE (NEGATIVE); LEUKOCYTE ESTERASE, URINE AUTO TRACE (NEGATIVE); NITRITE, URINE AUTO POSITIVE (NEGATIVE); PROTEIN, URINE AUTO NEGATIVE (NEGATIVE); RBC, URINE AUTO 0 /HPF (0-3); SPECIFIC GRAVITY URINE AUTO 1.013 (1.002-1.035); SQUAMOUS EPITHELIAL CELL UR AU 1 /HPF (0-6); UROBILINOGEN, URINE AUTO 0.2 mg/dL (0.0-2.0); WBC, URINE AUTO 14 /HPF (0-3)
== END ==
LOC: M SFHCPLAZ 12:55
PROVIDERS: ATTEND Physician Assistant Medical
DX: N30.00 Acute cystitis without hematuria (principal)